=== PATIENT | female | born 1990 | race Caucasian/White ===

== ENCOUNTER 2024-05-01 11:06 | Outpatient (AMB) | payer BC, SELFPAY ==
--- NOTE | 2024-05-01 11:16 | MHC.PC.OV ---
Vital Signs 05/01/24 11:18 Height 5 ft 4 in Weight 131 lb 8 oz BMI 22.6 BP 116/80 Blood Pressure Location Rt brachial Position Sitting Respiration 14 Pulse 91 Pulse Source Pulse Oximeter Temp 97.8 F Temp Source Temporal Artery Scan Pulse Oximetry (%) 99 Oxygen Delivery Method Room Air Intake Visit Reasons: SECURITY EXPERT requesting PE insurance needsUP Cigarette Paper Tester Required: No Accompanied by: Self / Same As Patient Allergies tramadol Adverse Reaction (Intermediate, Verified 05/01/24 11:33) Anaphylaxis codeine Adverse Reaction (Verified 05/01/24 11:33) Anaphylaxis Medication List - Last Reconciled 05/01/24 by Marysol Allen, CLOTHING EXAMINER-BC dextroamphetamine-amphetamine 10 mg 1 tab PO DAILY dextroamphetamine-amphetamine 30 mg ER 1 cap PO DAILY Tobacco use date assessed: 05/01/24 Dental Screening Dental Screen Date: 05/01/24 Did you have a dental visit in the last 12 months?: Yes Did you have a dental problem in the last 6 months where you did not have access to dental care?: No Was dental information given to patient?: Patient has dentist HPI HPI Comments History of Present Illness Details 34 y/o F PMDD, ZARIA, ADHD, pre-elampsia (2021), ureteral stricture causing right pyelonephritis, renal calculi Social: , has 1 Dtr - GG (2021). Works for [employer] Health Maintenance: Pap Tdap 2021 Specialists: Psych Counseling FWS FACULTY ASSISTANT Here today as a new patient [facility], no medical records. Coming from [facility]. Being ff'd by FWS FACULTY ASSISTANT for this. Recommended Lexapro 2 weeks before her period. However felt tired, took it in the AM. Took at HS and this caused insomnia. Stopped due to side effects. Discussed going back on OCP however really does not want to do that. Has tried natural supplements. She also endorses generalized anxiety. Symptoms are present most days of the week. Physical symptoms include tachycardia and feeling mildly short of breath. She has active with a counselor. She endorses concerns about her skin and would like skin surveillance. Needs a referral for this. She suffered a tear during vaginal delivery with her 1st and only child. She was undergoing pelvic floor therapy in the past however this provider has left. She is interested in resuming care as she felt that this was beneficial. ADHD is managed by an outside prescriber with Adderall. She states that she has a history of ureteral stricture causing right pyelonephritis in the past. She was followed by Urology out in [place] however has fell out of care. She admits that she overall has no sensation to void and has to remind herself to urinate. She does not have any current complaints of abdominal pain, back pain, nausea, vomiting or back pain. Does also report a history of renal calculi. Finally she endorses a strong family history of sudden cardiac on the paternal side of her family. Reports that several family members age 50 and younger have of sudden cardiac disease. Have suffered cardiac events younger than the age of 60. She has never been referred to a manager spring. [facility] Medical History (Updated 05/02/24 @ 08:29 by Marysol Allen, [facility]) Ureteral stricture PMDD (premenstrual dysphoric disorder) Anxiety ADHD Surgical History (Updated 05/01/24 @ 11:27 by JERMAIN Rodney) History of mandibular surgery S/P ureteral stent placement H/O foot surgery Family History Other Alzheimer disease Diabetes Heart failure Mental health disorder Substance abuse Social History Housing: House Patient Tobacco Use Status: Never used Tobacco e-Cigarette/Vaping Use: Never Used service: No Current occupational status: employed Current occupation: [employer] Professional Cognitive needs: No Hearing needs: No Vision needs: Yes Questionnaire PHQ-9 Over the last 2 weeks, how often have you been bothered by any of the following problems? 1. Little interest or pleasure in doing things: several days 2. Feeling down, depressed, or hopeless: several days 3. Trouble falling or staying asleep, or sleeping too much: more than half the days 4. Feeling tired or having little energy: several days 5. Poor appetite or overeating: several days 6. Feeling bad about yourself - or that you are a failure or have let yourself or your family down: several days 7. Trouble concentrating on things, such as reading the newspaper or watching television: several days 8. Moving or speaking so slowly that other people could have noticed. Or the opposite - being so fidgety or restless that you have been moving around a lot more than usual: not at all 9. Thoughts that you would be better off or of hurting yourself in some way: several days Total score: 9 Depression Screening Interpretation: Positive Depression Screening Follow-up: Existing condition and In treatment Depression Screening Done: Yes 19768 - PHQ-9 Billing: Yes Source: Developed by Drs. Glenn Putnam, Tita Samano, Jack Rao and colleagues, with an educational quang from [employer]. Thrive Questionnaire Date Thrive assessed: 05/01/24 I am a: Patient What is your living situation today?: I have a steady place to live Within the past 12 months, did the food you bought not last and you didn't have the money to get more?: Never true Within the past 12 months, did you worry whether your food would run out before you got money to buy more?: Never true Do you have trouble paying for medicines?: No Do you have trouble getting transportation to medical appointments?: No Do you have trouble paying your heating and electricity bill?: No Do you have trouble taking care of your child, family member or friend?: No Do you have trouble with day-to-day activities such as bathing, preparing meals, shopping, managing finances, etc.?: No Are you currently unemployed and looking for a job?: No Are you interested in more education?: No Please select the resources that you would like help with: None Currently or been in a relationship where the following occur: no concerns reported THRIVE Score: 0 AUDIT C Alcohol Use Questionnaire (AUDIT-C) 1. How often do you have a drink containing alcohol?: 2-3 times a week 2. How many drinks containing alcohol do you have on a typical day when you are drinking?: 1 or 2 3. How often do you have six or more drinks on one occasion?: Never Total Score: 3 Score Reviewed/Action Taken: Yes ZARIA-7 AMB Questionnaire ZARIA-7 Date ZARIA - 7 assessed: 05/01/24 Feeling nervous, anxious, or on edge: 2 = More than half the days Not being able to stop or control worryin = Several days Worrying too much about different things: 1 = Several days Trouble relaxin = More than half the days Being so restless that it is hard to sit still: 3 = Nearly every day Becoming easily annoyed or irritable: 2 = More than half the days Feeling afraid as if something awful might happen: 1 = Several days Total ZARIA-7 score (0-4 normal; 5-9 mild; 10-14 moderate; 15-21 severe): 12 Source: Developed by Drs. Glenn Putnam, Tita Samano, Jack Rao and colleagues, with an educational quang from [employer]. ZARIA-7 Assessment Billing ZARIA-7 Assessment Tool: ZARIA-7 Assessment 41601 Review of Systems Const All systems reviewed & are unremarkable except as noted in HPI and below Physical exam (Primary Care) Vital Signs: Last Vital Signs Temp 97.8 F 05/01/24 11:18 Pulse 91 05/01/24 11:18 Resp 14 05/01/24 11:18 BP 116/80 05/01/24 11:18 Pulse Ox 99 05/01/24 11:18 Oxygen Delivery Method Room Air 05/01/24 11:18 BMI result Body Mass Index 22.6 Tobacco/Smoking Status: Tobacco use Status Tobacco use date assessed 05/01/24 05/01/24 11:32 Patient Tobacco Use Status Never used Tobacco 05/01/24 11:32 e-Cigarette/Vaping Use Never Used 05/01/24 11:32 PHQ-9: PHQ-9 Score PHQ-9: Total score 9 05/01/24 11:48 Depression Screening Interpretation: Positive Depression Screening Follow-up: Existing condition and In treatment Thrive Assessment: Date of Thrive Assessment Date Thrive assessed 05/01/24 05/01/24 11:32 Currently or been in a relationship where the following occur: no concerns reported Const Other: Awake alert oriented, pleasant and cooperative Mucous membranes moist Mildly tachycardic, regular rhythm Lung sounds clear to auscultation bilat No CVAT bilat Mood and affect appropriate Assessment and Plan Assessment & Plan (1) Pyelonephritis of right kidney: Comment: Due to ureteral stricture. Was followed by Urology and was started however has fallen out of care. We will refer to local urology for surveillance. Code(s): N12 - Tubulo-interstitial nephritis, not specified as acute or chronic (2) Family history of sudden cardiac : Comment: Refer to cardiology for screening given family history on paternal side. Code(s): Z82.41 - Family history of sudden cardiac (3) ZARIA (generalized anxiety disorder): Comment: see PMDD care plan Code(s): F41.1 - Generalized anxiety disorder (4) ADHD: Comment: Managed by outside prescriber and counselor with the use of extended release Adderall as well as immediate release Adderall with positive effect. Code(s): F90.9 - Attention-deficit hyperactivity disorder, unspecified type Qualifiers: Attention deficit-hyperactivity disorder type: predominantly inattentive Qualified Code(s): F90.0 - Attention-deficit hyperactivity disorder, predominantly inattentive type (5) PMDD (premenstrual dysphoric disorder): Comment: Tried Lexapro in the past however had side effects. The plan today will be to start her on Celexa 20 mg to be taken for 2 weeks per month prior to the onset of her symptoms. She does endorse generalized anxiety disorder that also is present. Symptoms are present most days. While she has not opposed to take something every single day she would rather trial taking it for 2 weeks to see how this helps versus starting it daily. She may benefit from taking this daily to help control her overall anxiety symptoms along with her PMDD symptoms. We will re-evaluate this at the next office visit which will be in about 2 months or sooner as needed. Code(s): F32.81 - Premenstrual dysphoric disorder (6) Screening for skin cancer: Comment: Refer to [facility]. Patient is aware that she needs to call and schedule this appointment herself. Code(s): Z12.83 - Encounter for screening for malignant neoplasm of skin (7) Ureteral stricture: Comment: Refer urology Code(s): N13.5 - Crossing vessel and stricture of ureter without hydronephrosis (8) Laboratory exam ordered as part of routine general medical examination: Code(s): Z00.00 - Encounter for general adult medical examination without abnormal findings (9) Pelvic floor dysfunction in female: Comment: referred to 7 sisters for eval and tx Code(s): M62.89 - Other specified disorders of muscle Plan: This note is constructed using voice recognition software. While every effort has been made to ensure accuracy in manager mining, still errors may have been included Sometimes, these errors may affect the content or meaning of the given sentence . Total time spent caring for the patient today was 46 minutes. This includes time spent before the visit reviewing the chart, time spent during the visit, and time spent after the visit on documentation Orders: Orders Microalbumin, Random (w Creat) 05/01/24 Z00.00 - Encounter for general adult medical examination without abnormal findings LDL Cholesterol Direct 05/01/24 Z00.00 - Encounter for general adult medical examination without abnormal findings IRON PROFILE 05/01/24 Z00.00 - Encounter for general adult medical examination without abnormal findings Hemoglobin A1c 05/01/24 Z00.00 - Encounter for general adult medical examination without abnormal findings TSH reflex Free T4 05/01/24 Z00.00 - Encounter for general adult medical examination without abnormal findings Vitamin D 1,25 dihydroxy 05/01/24 Z00.00 - Encounter for general adult medical examination without abnormal findings Comprehensive Met. Panel 05/01/24 Z00.00 - Encounter for general adult medical examination without abnormal findings Vitamin B12 and Folate 05/01/24 Z00.00 - Encounter for general adult medical examination without abnormal findings Complete Blood Count no Diff 05/01/24 Z00.00 - Encounter for general adult medical examination without abnormal findings Referrals Dermatology Referral Z12.83 - Encounter for screening for malignant neoplasm of skin Urology Referral N12 - Tubulo-interstitial nephritis, not specified as acute or chronic Cardiology Referral Z82.41 - Family history of sudden cardiac Medications: New citalopram 20 mg PO DAILY 30 tabs 1RF Patient Instructions: Check screening labs Use celexa for PMDD Keep journal of daily anxiety sx, consider taking QD to help overall Sx Refer to cards for fmhx of early cardiac Refer to Derm for skin survey Refer to Uro for ureteral stricture and R Pyelo RTO in 2 months to FU on PMDD, ZARIA and labs. Sooner as needed. [facility] in [facility] --> call them for appt. [facility] [address] [id number] *Call to see about Pelvic Floor program Walk-In Care (Urgent Care): We Make it Easy Walk-in for urgent medical issues such as: ? Seasonal Allergies ? Insect Bites ? Cough ? Diarrhea ? Acute Asthma Attacks ? Back, Knee or Joint Pain ? Ear Infection ? Fever without a Rash ? Headaches ? Nausea ? [place] Eye, Rash or Skin Irritation ? Sore Throat ? Sports Physicals ? Vomiting Most insurances are accepted. Patients do not need to be part of the [facility] to seek care at the walk-in clinic. Locations [address] [facility] [place] [address] ? [phone] [facility] Walk-In Care in [place] provides services to ages 18 and over. Open Sunday-Sunday: 8 a.m. to 5 p.m. and Sunday: 9 a.m. to 3 p.m.* *Hours may vary due to staffing availability. To confirm Walk-In Care hours in [place], please call [phone]. [address] [place] [address] ? [phone] [facility] Walk-In Care in [place] provides services to ages 12 and over. Open Sunday-Sunday: 8 a.m. to 5 p.m. Hours may vary due to staffing availability. To confirm Walk-In Care hours in [place], please call [phone]. LABORATORY SERVICES: [facility] ? Primary Location [address] [place] [address] Sunday through Sunday 6:00 AM ? 5:00 PM Sunday 7:00 AM ? 11:00 AM* [phone] The [facility] is centrally located near the front entrance of the [facility] for easy outpatient access. Convenient parking is provided for outpatients. *Hours may vary due to staffing availability. To confirm Laboratory hours for any location, please call [phone]. Offsite Location For your convenience, we offer offsite laboratory draw stations at the following locations: [address] [place] [address] ? [facility] [address], [address] Sunday through Sunday 7:30 AM ? 1:00 PM* [phone] *Hours may vary due to staffing availability. To confirm Laboratory hours for any location, please call [phone]. [place] ? [address] Sunday through Sunday 6:00 AM ? 3:30 PM* Sunday 6:30 AM ? 3 PM* [phone] *Hours may vary due to staffing availability. To confirm Laboratory hours for any location, please call [phone]. [address] [facility] Sunday through Sunday 7:30 AM ? 4:00 PM* [phone] *Hours may vary due to staffing availability. To confirm Laboratory hours for any location, please call [phone] [place] [address] Sunday through 9:00 AM ? 4:00 PM* *Hours may vary due to staffing availability. To confirm Laboratory hours for any location, please call [phone]. Appointments are not necessary. Walk-ins are welcome. Like all the departments throughout the [facility], our Lab undergoes frequent reviews to ensure the quality and accuracy of test results, and our staff takes special pride in its status as a nationally accredited facility. Patient Portal: ONE PATIENT. ONE RECORD. BETTER CARE. [facility] has a fully integrated, cutting-edge mobile electronic health information system that has revolutionized the way we care for our patients and manage our organization. This system improves communication and coordination enabling us to provide safe, higher-quality care, and an overall positive experience for staff and patients. Our first priority, as always, is to deliver the highest quality care possible. The system is running in the background supporting that priority. This portal is for all [facility] services and practices. If you are experiencing any technical difficulties with enrolling or logging into the Patient Portal please complete the [facility] Patient Portal Technical Support Form. [facility] now offers a new secure on-line interactive tool for patients to review their health information ? ?Patient Portal. This interactive web portal will enable patients and their families to take an active role in their care by providing easy, secure access to their health information via the internet. The Patient Portal provides patients with instant access to their health information, including laboratory results, medications, allergies, demographic information, visit history, and more. In addition to managing their own care, parents and health care proxies with authorized consent will appreciate the ability to access the records of those individuals for whom they provide care. Please note: if you wish to gain access (Proxy) to another patient?s portal, you will be required to come to the Medical Records Department in person at [facility]. Both the patient giving proxy access and the proxy will need to provide photo identification and complete the appropriate authorization. The Patient Portal also allows track their appointments online. The [facility] Patient Portal also saves patients time by allowing them to submit updates to their demographic and contact information prior to their visits. Portal email notifications will also alert patients to any new activity on their portal, such as test results and new appointments. In order to initially enroll in the [facility] Patient Portal, you will need to enter some required information including the following: your [facility] Medical Record number your personal home email address name date of Please note: In order to enroll in the [facility] Patient Portal, we need to have your email address on file in your electronic medical record. ?The email address needs to be specific for one person (yourself) in order for your Portal enrollment to be successful. ?You can update your email address in person with our Registration staff when you are registering for a hospital visit. ?Otherwise, you will need to come to the Health Information Management (Medical Records) Department at [facility]. ?We are open from Sunday ? Sunday from 7:30 a.m. ? 4:30 p.m. ?You will be required to present a photo id. Once you have successfully enrolled in the Patient Portal, you will receive a one-time user id and password for the Portal, sent to your email address. ?This will allow you to log into the Patient Portal within 99 hrs and reset your own logon id and password, and define personal security questions. ?Once your permanent login and password have been set, you can log into the [facility] Patient Portal at any time via the blue button above or from the Portal Logon button on any page of the [facility] website. [facility] encourage all of our patients to enroll in Patient Portal as it presents a valuable opportunity for patients and their families to actively participate in their care and stay healthy Welcome to [facility]. ?We look forward to working with you. Coding Level of Care Code New Pt Level 4 (85043) Diagnoses Pyelonephritis of right kidney N12 Family history of sudden cardiac Z82.41 ZARIA (generalized anxiety disorder) F41.1 Attention deficit hyperactivity disorder (ADHD), predominantly inattentive type F90.0 Attention deficit-hyperactivity disorder type: predominantly inattentive PMDD (premenstrual dysphoric disorder) F32.81 Screening for skin cancer Z12.83 Ureteral stricture N13.5 Laboratory exam ordered as part of routine general medical examination Z00.00 Pelvic floor dysfunction in female M62.89 Additional Codes ZARIA-7 Assessment Billing - ZARIA-7 Assessment Tool: ZARIA-7 Assessment 23970 ([id number])
[2024-05-01 11:18] VITALS: BP 116/80; PULSE 91; RESP 14; TEMP 36.6; O2SAT 99; BMI 22.6
== END 2024-05-01 12:04 | disposition home or self-care (01) ==
PROVIDERS: PCP Nurse Practitioner Family; Visit Provider Nurse Practitioner Family
DX: N12 Tubulo-interstitial nephritis, not specified as acute or chronic (principal); Z82.41 Family history of sudden cardiac death; F41.1 Generalized anxiety disorder; F90.0 Attention-deficit hyperactivity disorder, predominantly inattentive type; F32.81 Premenstrual dysphoric disorder; Z12.83 Encounter for screening for malignant neoplasm of skin; N13.5 Crossing vessel and stricture of ureter without hydronephrosis; M62.89 Other specified disorders of muscle
CPT/HCPCS: 99204

== ENCOUNTER 2024-05-01 12:15 | Outpatient (REF) | payer BC, SELFPAY ==
[2024-05-01 14:49] LABS: Estimated Average Glucose 91 mg/dL; Hemoglobin A1c % 4.8 % (<6.0)
[2024-05-01 14:55] LABS: Hematocrit 42.3 % (37.0-47.0); Hemoglobin 14.7 g/dl (12.0-16.0); Mean Corpuscular HGB Conc 34.8 g/dl (31.0-35.0); Mean Corpuscular Hemoglobin 29.9 pg (27.0-33.0); Mean Corpuscular Volume 86.2 fL (80.0-98.0); Mean Platelet Volume 9.9 fL (9.4-12.3); Platelet Count 333 X10*3/uL (160-400); Red Blood Count 4.91 X10*6/uL (4.20-5.50); Red Cell Distribution Width 12.9 % (11.0-16.0); White Blood Count 8.4 X10*3/uL (4.8-10.8)
[2024-05-01 15:06] LABS: Alanine Aminotransferase 13 U/L (0-31); Albumin Level 4.7 g/dL (3.5-5.0); Alkaline Phosphatase 48 U/L (39-117); Anion Gap 8 (12-20); Aspartate Amino Transferase 16 U/L (5-31); Bilirubin Total 0.8 mg/dL (0.0-1.0); Blood Urea Nitrogen 12 mg/dL (9-16); Calcium 9.7 mg/dL (8.4-10.2); Carbon Dioxide 27 mmol/L (22-29); Chloride 107 mmol/L (96-108); Estimated Glomerular Filt Rate > 60; Glucose Random 87 mg/dL (60-115); Iron 89 mcg/dL (30-160); Percent Iron Saturation 25 % (15-50); Potassium 3.3 mmol/L (3.3-5.1); Sodium 139 mmol/L (135-145); Total Iron Binding Capacity 358 mcg/dL (228-428); Total Protein 7.2 g/dL (6.5-8.0); Unsaturated Iron Binding 269 ug/dL
[2024-05-01 15:14] LABS: TSH reflex Free T4 1.48 uIU/mL (0.32-4.0)
[2024-05-01 15:25] LABS: Creatinine Urine 32.18 mg/dL; Microalbum/Creatinine Ratio Ur 34.1 ug/mg cr (<30)
[2024-05-01 15:27] LABS: Folate 13.9 ng/mL (> or = 4.0); Vitamin B12 541 pg/mL (200-900)
[2024-05-02 12:13] LABS: LDL Cholesterol Direct 77 mg/dL (<100)
[2024-05-06 00:04] LABS: VITAMIN D (1,25 OH) D3 60 pg/mL; Vit D (1,25-Dihydroxy) Total 60 pg/mL (18-72); Vitamin D (1,25 OH) D2 <8 pg/mL
== END 2024-05-01 12:16 | disposition home or self-care (01) ==
LOC: HO.WFDLDS 12:15
PROVIDERS: Visit Provider Nurse Practitioner Family
DX: Z00.00 Encounter for general adult medical examination without abnormal findings (principal); Z13.1 Encounter for screening for diabetes mellitus; Z13.29 Encounter for screening for other suspected endocrine disorder; Z13.89 Encounter for screening for other disorder
CPT/HCPCS: 36415; 80053; 82043; 82570; 82607; 82652; 82746; 83036; 83540; 83721; 84443; 85027

== ENCOUNTER 2025-07-08 11:31 | Outpatient (AMB) | payer OTHER, SELFPAY ==
--- NOTE | 2025-07-08 11:39 | A.OFFPC_ITS ---
Vital Signs 3 07/08/25 11:45 07/08/25 12:17 07/08/25 12:20 Height 5 ft 4 in Weight 129 lb 8 oz BMI 22.2 BP 142/80 H 124/94 H 126/90 H Blood Pressure Location Lt brachial Lt brachial Rt brachial Position Sitting Sitting Sitting Respiration 12 Pulse 63 Pulse Source Pulse Oximeter Temp 96.9 F Temp Source Oral Pulse Oximetry (%) 99 Oxygen Delivery Method Room Air Intake Visit Reasons: [facility] UTI, kidney pain/infection, and blood pre Intake Note: [facility] discharge follow up Printing Table Worker Required: No Allergies hydromorphone (From Dilaudid) Allergy (Severe, Verified 07/08/25 11:51) Vomiting tramadol Adverse Reaction (Intermediate, Verified 07/08/25 11:51) Anaphylaxis codeine Adverse Reaction (Verified 07/08/25 11:51) Anaphylaxis Medication List - Last Reconciled 07/08/25 by Marysol Allen, MANAGER MECHANICAL MAINTENANCE-BC dextroamphetamine-amphetamine 10 mg 1 tab PO DAILY dextroamphetamine-amphetamine 30 mg ER 1 cap PO DAILY Tobacco use date assessed: 07/08/25 Dental Screening Dental Screen Date: 05/01/24 Did you have a dental visit in the last 12 months?: Yes Did you have a dental problem in the last 6 months where you did not have access to dental care?: No Was dental information given to patient?: Patient has dentist HPI HPI Comments 2 History of Present Illness0 Details 35 y/o F PMDD, ZARIA, ADHD, pre-elampsia ( 2021), ureteral stricture causing right pyelonephritis, renal calculi, family hx of early cardiac , fhx brain tumor in mother Social: , has 1 Dtr - GG (2021). Works for [employer] Health Maintenance: Pap Tdap 2021 Specialists: Psych Counseling CHIEF MEDICAL TECHNOLOGIST Here today for a Transitional Care Management Visit Discharge summary reviewed. Admission Date: 06/14/2025 Discharge Date: 06/17/2025 Hospital: [facility] Date of interactive contact with Nurse Navigator: as documented in chart Pending diagnostic tests/treatments: See above Pending consults: No DME: NO PT/OT/BROKE MAN: NO Home Health Aide/FOAM DISPENSER: NO Referrals: Renal - Dr Srinivasan Medications reconciled & updated. During todays TCM visit, the d/c summary was reviewed, along with the need for or follow-up on pending diagnostic tests and treatments, as necessary interaction with other health childcare center administrator who will assume or reassume care of the beneficiary?s system-specific problems was done or is being worked on, education was provided to the beneficiary, family, guardian, and/or caregiver, referrals to establish or re-establish and arrange needed community resources we completed, assistance in scheduling required follow-up with community providers and services & finally updated medication list given to patient/caregiver History of Present Illness - The patient is a 35-year-old female pr esenting for a hospital discharge follow-up for pyelonephritis. - Hypertension and tachycardia noted dur ing admission. - Stopped takin BP meds 1 week ago. Repo rts monitoring at home, and normal. - Headache today otherwise no sx of HTN. - [place] the BP meds made her gasp for ai r - Stopped OCP. Saw CHIEF MEDICAL TECHNOLOGIST who is treating h er for another post-coital UTI - macrobid. was given prophylactic meds, too. - Needs referral to Dr Srinivasan and US ord ered - Reviewed hx of sudden cardiac ; r eferred to cards last year; couldnt go. New insurance. Interested in Echo and referral - Discharged with losartan, amlodipine; prescribed antibiotics for recurrent UTIs. Review of Systems - Cardiovascular: Reports no current gosia st pain; history of tachycardia. - Genitourinary: Reports recurrent UTIs; notes improvement post-antibiotics; denies current dysuria. - Neurological: Denies recent episodes o f dizziness or syncope; reports occurrence of headaches. - Gastrointestinal: Denies current sympt oms; history of flank pain associated with UTIs. - General: Denies fever, chills, nausea, vomiting. Physical Exam General: Well developed, well nourished, in no acute distress. Appears stated age. Head: Normocephalic, atraumatic. Eyes: Pupils are equal, round and reactive to light and accommodation. Conjunctivae are clear. Vision grossly normal. Lungs: Clear to auscultation bilaterally. No rales, rhonchi or wheeze noted. Good air flow in all cesar. Heart: Regular rate and rhythm. No murmurs, click, rubs or gallops are noted. Abdomen: Bowel sounds present in all quadrants. The abdomen is soft, nontender, with no masses or organomegaly noted. No hernias are noted. No CVAT bilat. Musculoskeletal: Joints are nontender, without swelling, redness, or effusions. Pulses: Peripheral pulses are equal and palpable bilaterally. Extremities: No clubbing, cyanosis nor edema is noted. Neuro: Nonfocal exam Psych: Mood and affect appropriate. Discussion Notes I emphasized the importance of medication adherence and consistent blood pressure monitoring. We also addressed her history of recurrent UTIs and current use of preventative antibiotics post-intercourse. I reiterated the need for a renal artery duplex ultrasound to assess renal artery stenosis due to ongoing renal concerns and reiterated my intention to expedite this process in coordination with her insurance and nephrology team. Further, I confirmed her nephrology consultation and addressed her concerns regarding cardiac health, offering referral for an echocardiogram given her family history & referral to [facility] cards. We planned a follow-up in July to coincide with her scheduled appointments for a comprehensive review of diagnostic outcomes and reinforced anticipatory guidance on when to seek immediate care. Patient was given time to ask questions. All questions were answered to their satisfaction. Assessment and Plan 1. Pyelonephritis - Schedule renal ultrasound. - Follow up in nephrology. 2. Essential Hypertension - Resume losartan and amlodipine. - Log daily blood pressure readings. - Echo 3. Recurrent Urinary Tract Infections - Use prophylactic postcoital antibiotic s. - Ensure adequate hydration. 4. Hypokalemia - Order CMP for potassium to be done tod ay Patient Instructions - Restart your losartan and amlodipine m edications. - Take your blood pressure once a day an d write it down. - Use your antibiotics as directed after having sex to prevent UTIs. - Drink plenty of water every day to sta y hydrated. - Schedule follow-up appointments with n ephrology and cardiology. - Come back to see me if you feel unwell or need more help. - RTO Jul/Aug for CPE Consent Patient was informed and verbally consented to the use of an ambient scribe for clinic note documentation during this visit. Total time spent caring for the patient today was 45 minutes. This includes time spent before the visit reviewing the chart, time spent during the visit, and time spent after the visit on documentation, reviewing laboratory results, diagnostic imaging, medications, performing a medically necessary evaluation, counseling on diagnoses, care coordination, ordering appropriate tests, ordering appropriate medications, review of tests performed by other providers, reporting test results with the patient, communication with other healthcare providers. [facility] Medical History (Updated 07/08/25 @ 12:24 by Marysol Allen [facility]) ADHD Anxiety Chronic jaw pain History of kidney stones Hives PMDD (premenstrual dysphoric disorder) Ureteral disorder Ureteral stricture Surgical History (Updated 05/01/24 @ 11:27 by JERMAIN Rodney) H/O foot surgery History of mandibular surgery S/P ureteral stent placement Family History Other Alzheimer disease Diabetes Heart failure Mental health disorder Substance abuse Social History Housing: House Patient Tobacco Use Status: Never used Tobacco e-Cigarette/Vaping Use: Never Used service: No Current occupational status: employed Current occupation: [employer] Cognitive needs: No Hearing needs: No Vision needs: Yes Questionnaire PHQ-9 Over the last 2 weeks, how often have you been bothered by any of the following problems? 1. Little interest or pleasure in doing things: not at all 2. Feeling down, depressed, or hopeless: not at all 3. Trouble falling or staying asleep, or sleeping too much: not at all 4. Feeling tired or having little energy: not at all 5. Poor appetite or overeating: not at all 6. Feeling bad about yourself - or that you are a failure or have let yourself or your family down: not at all 7. Trouble concentrating on things, such as reading the newspaper or watching television: not at all 8. Moving or speaking so slowly that other people could have noticed. Or the opposite - being so fidgety or restless that you have been moving around a lot more than usual: not at all 9. Thoughts that you would be better off or of hurting yourself in some way: not at all Total score: 0 Depression Screening Interpretation: Negative Depression Screening Done: Yes 59119 - PHQ-9 Billing: Yes Source: Developed by Drs. Glenn Putnam, Tita Samano, Jack Rao and colleagues, with an educational quang from [employer]. Thrive Questionnaire Date Thrive assessed: 07/08/25 I am a: Patient What is your living situation today?: I have a steady place to live Within the past 12 months, did the food you bought not last and you didn't have the money to get more?: Never true Within the past 12 months, did you worry whether your food would run out before you got money to buy more?: Never true Do you have trouble paying for medicines?: No Do you have trouble getting transportation to medical appointments?: No Do you have trouble paying your heating and electricity bill?: No Do you have trouble taking care of your child, family member or friend?: No Do you have trouble with day-to-day activities such as bathing, preparing meals, shopping, managing finances, etc.?: No Are you currently unemployed and looking for a job?: No Are you interested in more education?: No Please select the resources that you would like help with: None Currently or been in a relationship where the following occur: No concerns reported THRIVE Score: 0 AUDIT C Alcohol Use Questionnaire (AUDIT-C) 1. How often do you have a drink containing alcohol?: 2-3 times a week 2. How many drinks containing alcohol do you have on a typical day when you are drinking?: 1 or 2 3. How often do you have six or more drinks on one occasion?: Never Total Score: 3 Score Reviewed/Action Taken: Yes ZARIA-7 AMB Questionnaire ZARIA-7 Date ZARIA - 7 assessed: 07/08/25 Feeling nervous, anxious, or on edge: 0 = Not at all Not being able to stop or control worryin = Not at all Worrying too much about different things: 0 = Not at all Trouble relaxin = Not at all Being so restless that it is hard to sit still: 0 = Not at all Becoming easily annoyed or irritable: 0 = Not at all Feeling afraid as if something awful might happen: 0 = Not at all Total ZARIA-7 score (0-4 normal; 5-9 mild; 10-14 moderate; 15-21 severe): 0 Source: Developed by Drs. Glenn Putnam, Tita Samano, Jack Rao and colleagues, with an educational quang from [employer]. ZARIA-7 Assessment Billing ZARIA-7 Assessment Tool: ZARIA-7 Assessment 07221 Physical exam (Primary Care) Vital Signs: Last Vital Signs Temp 96.9 F 07/08/25 11:45 Pulse 63 07/08/25 11:45 Resp 12 07/08/25 11:45 BP 142/80 H 07/08/25 11:45 Pulse Ox 99 07/08/25 11:45 Oxygen Delivery Method Room Air 07/08/25 11:45 BMI result Body Mass Index 22.2 Tobacco/Smoking Status: Tobacco use Status Tobacco use date assessed 07/08/25 07/08/25 11:47 Patient Tobacco Use Status Never used Tobacco 07/08/25 11:47 e-Cigarette/Vaping Use Never Used 07/08/25 11:47 PHQ-9: PHQ-9 Score PHQ-9: Total score 0 07/08/25 11:47 Depression Screening Interpretation: Negative Thrive Assessment: Date of Thrive Assessment Date Thrive assessed 07/08/25 07/08/25 11:47 Currently or been in a relationship where the following occur: No concerns reported Coding Level of Care Code Est Pt Level 5 (98138) Complex EM visit Add On G2211 Diagnoses Hospital discharge follow-up Z09 Pyelonephritis of right kidney N12 Ureteral stricture N13.5 Primary hypertension I10 Hypertension type: primary hypertension Family history of sudden cardiac Z82.41 Recurrent UTI N39.0 Additional Codes ZARIA-7 Assessment Billing - ZARIA-7 Assessment Tool: ZARIA-7 Assessment 69764 ([id number]) PHQ-9 - 33676 - PHQ-9 Billing: Yes ([id number]) Assessment & Plan Assessment & Plan (1) Hospital discharge follow-up: Code(s): Z09 - Encounter for follow-up examination after completed treatment for conditions other than malignant neoplasm (2) Pyelonephritis of right kidney: Comment: Due to ureteral stricture. Was followed by Urology and was started however has fallen out of care. We will refer to local urology for surveillance. Code(s): N12 - Tubulo-interstitial nephritis, not specified as acute or chronic Category: Medical (3) Ureteral stricture: Comment: Refer urology Code(s): N13.5 - Crossing vessel and stricture of ureter without hydronephrosis Category: Medical (4) HTN (hypertension): Code(s): I10 - Essential (primary) hypertension Category: Medical Qualifiers: Hypertension type: primary hypertension Qualified Code(s): I10 - Essential (primary) hypertension (5) Family history of sudden cardiac : Comment: Refer to cardiology for screening given family history on paternal side. Code(s): Z82.41 - Family history of sudden cardiac Category: Medical (6) Recurrent UTI: Code(s): N39.0 - Urinary tract infection, site not specified Category: Medical Plan . Orders: Orders 2 Comprehensive Met. Panel Today N12 - Tubulo-interstitial nephritis, not specified as acute or chronic, Z09 - Encounter for follow-up examination after completed treatment for conditions other than malignant neoplasm US renal doppler Today I10 - Essential (primary) hypertension, N12 - Tubulo- interstitial nephritis, not specified as acute or chronic CA echo transthoracic complete Today I10 - Essential (primary) hypertension, Z82.41 - Family history of sudden cardiac Referrals 2 Nephrology Referral I10 - Essential (primary) hypertension, N12 - Tubulo- interstitial nephritis, not specified as acute or chronic, N13.5 - Crossing vessel and stricture of ureter without hydronephrosis, Z09 - Encounter for follow-up examination after completed treatment for conditions other than malignant neoplasm Cardiology Referral I10 - Essential (primary) hypertension, Z82.41 - Family history of sudden cardiac Medications: New 2 losartan 100 mg PO DAILY 90 tabs 0RF amlodipine (Norvasc) 5 mg PO DAILY 90 tabs 0RF
[2025-07-08 11:45] VITALS: BP 142/80; PULSE 63; RESP 12; TEMP 36.1; O2SAT 99; BMI 22.2
[2025-07-08 12:17] VITALS: BP 124/94
[2025-07-08 12:20] VITALS: BP 126/90
--- OUTSIDE RECORDS SUMMARY | 2025-07-08 12:50 | XMS_ITS | Clinical Summary ---
Author Organization [facility] Address [address] [place] [address] Care Team Providers Care Financial Analyst Accountant Name Role Phone Maureen Frias MD Primary Care Provider Allergies Active Allergy Reactions Criticality Noted Date Comments Codeine Swelling Medium 10/17/2017 Tramadol Swelling Medium 10/17/2017 Medications No known medications Immunizations Immunization Administration Dates Next Due Influenza Inactivated/Split Preservative Free IM 10/17/2017(Deferred: Patient Refused) Social History Tobacco Use Types Packs/Day Years Used Date Smoking Tobacco: Never Smokeless Tobacco: Never Comments Unknown Sex and Gender Information Value Date Recorded Sex Assigned at Not on file Legal Sex Female 12:43 PM EST Gender Identity Not on file Sexual Orientation Not on file Last Filed Vital Signs Vital Sign Reading Time Taken Comments Blood Pressure 137/92 10/17/2017 12:56 PM EST Pulse 84 10/17/2017 12:56 PM EST Temperature 36.5 C (97.7 F) 10/17/2017 12:56 PM EST Respiratory Rate - - Oxygen Saturation 99% 10/17/2017 12:56 PM EST Inhaled Oxygen Concentration - - Weight - - Height - - Body Mass Index - - Plan of Treatment Health Maintenance Due Date Last Done Comments Hepatitis C Virus Screening 1990 HIV Screening 2003 DTaP/Tdap/Td Vaccines (1 - Tdap) 2009 Hepatitis B Vaccines (1 of 3 - 19+ 3-dose series) 2009 Pap Smear (Ages 21-65) 2011 HPV Vaccines (1 - 3-dose SCD M series) 2017 COVID-19 Vaccine ( - 2023-2 5 season) 2024 Influenza Vaccine 06/19/2025 Pneumococcal Vaccine: Pediat tres (0-5 Years) and At-Risk Patients (6 to 49 Years) Aged Out No longer eligible b ased on patient's age to complete this topic Insurance [facility] Care Teams Financial Analyst Accountant Relationship Specialty Start Date End Date Maureen Frias MD [address] [place] [address] [phone] PCP - General 10/17/17
--- OUTSIDE RECORDS SUMMARY | 2025-07-08 12:50 | XMS_ITS ---
Author Name [facility] Organization Unknown Care Team Organization Name Specialty Phone Email Start Date End Da te [facility] 03/26/2023 024 [facility] Termed, PROVIDER Primary Care 09/26/202206/19
--- OUTSIDE RECORDS SUMMARY | 2025-07-08 12:50 | XMS_ITS | Clinical Summary ---
Author Organization [facility] Address [address] [address] Phone Care Team Providers Care Cycle Analyst Name Role Phone Schaffer, Marysolkailash FLOWERS Primary Care Provider Social History Tobacco Use Types Packs/Day Years Used Date Smoking Tobacco: Never Assessed Comments Unknown Sex and Gender Information Value Date Recorded Sex Assigned at Not on file Legal Sex Female 1:33 PM EDT Gender Identity Not on file Sexual Orientation Not on file Plan of Treatment Upcoming Encounters Date Type Department Care Team (Late st Contact Info) Description 08/12/2025 9:00 AM EDT Office Visit [facility] [address] [phone] Ethan Richards MD [address] [phone] Health Maintenance Due Date Last Done Comments Hepatitis B Vaccine (1 of 3 - 19+ 3-dose series) 04/12 Pneumococcal Vaccine: Peds ( 0 to 5 Years) and At-Risk Patients (6 to 49 Years) (1 of 2 - PCV) 2009 Influenza Vaccine (#1) 2025 Insurance [employer] Care Teams Cycle Analyst Relationship Specialty Start Date End Date Marysol Schaffer FNP [address] [place] [phone] PCP - General Nurse Practitioner 11/19/24
== END 2025-07-08 12:16 | disposition home or self-care (01) ==
LOC: HO.HMCFM 11:33
PROVIDERS: PCP Nurse Practitioner Family; Visit Provider Nurse Practitioner Family
DX: N12 Tubulo-interstitial nephritis, not specified as acute or chronic (principal); Z09 Encounter for follow-up examination after completed treatment for conditions other than malignant neoplasm; N13.5 Crossing vessel and stricture of ureter without hydronephrosis; I10 Essential (primary) hypertension; Z82.41 Family history of sudden cardiac death; N39.0 Urinary tract infection, site not specified

== ENCOUNTER → 2025-07-08 11:31 | Outpatient (BNVA) | payer OTHER, SELFPAY | PROVIDERS: PCP Nurse Practitioner Family; Visit Provider Nurse Practitioner Family | DX: I10 Essential (primary) hypertension (principal); N12 Tubulo-interstitial nephritis, not specified as acute or chronic; E87.6 Hypokalemia; N13.5 Crossing vessel and stricture of ureter without hydronephrosis; Z82.41 Family history of sudden cardiac death; Z87.440 Personal history of urinary (tract) infections | CPT/HCPCS: 96127 ==

== ENCOUNTER 2025-07-29 08:28 | Outpatient (REF) | payer OTHER, SELFPAY ==
--- NOTE | ~2025-07-29 | US_ITS ---
EXAMINATION: ULTRASOUND RENAL BILATERALLY. ULTRASOUND RENAL DOPPLER, BILATERALLY. CLINICAL INFORMATION: Urinary tract infection. N39.0. COMPARISON: No priors. TECHNIQUE: Real-time ultrasound kidneys using grayscale technique. Spectral Doppler analysis of the main renal arteries, abdominal aorta at the origin of the main renal arteries and resistive indicis in the segmental and interlobular renal arteries at the upper mid and lower pole. FINDINGS: Right kidney: 13 x 5 x 6. Normal echotexture. Normal renal cortical thickness. Mild prominent pelvicalyceal system. There is a 1.1 cm hyperechoic abnormality at the corticomedullary junction of the lower pole. Left kidney: 11 x 5 x 5 cm. Normal echotexture. Normal renal cortical thickness. No hydronephrosis. No gross solid or cystic lesion. SPECTRAL DOPPLER ANALYSIS: Abdominal aorta at the origin of the main renal arteries is patent with peak systolic velocity 102 cm/s. Right Kidney: -Peak systolic velocity in the proximal right renal artery = 173 cm/s. Normal waveforms. -Peak systolic velocity in the mid right renal artery = 166 cm/s. Normal waveforms. -Peak systolic velocity in the distal right renal artery = 177 cm/s. Normal waveforms. -Patent right renal vein. -Upper pole interlobar artery resistive index of 0.75. -Midpole interlobar artery resistive index of 0.70. -Lower pole interlobar artery resistive index of 0.61. RAR right = note calculated Left Kidney: -Peak systolic velocity in the proximal left renal artery = 74 cm/s. Normal waveforms. -Peak systolic velocity in the mid left renal artery = 191 cm/s. Normal waveforms. -Peak systolic velocity in the distal left renal artery = 196 cm/s. Normal waveforms. -Patent left renal vein. -Upper pole interlobar artery resistive index of 0.52. -Mid pole interlobar artery resistive index of 0.61. -lower pole interlobar artery resistive index of 0.60. RAR left = not calculated Aorta: -Peak systolic velocity = 102 cm/s. US/US renal BI IMPRESSION: Mild hydronephrosis, right kidney. 1.1 cm calculus, right kidney. No hydronephrosis left kidney. No hemodynamically significant stenosis by ultrasound criteria. Electronically signed by: Mc Fermin MD 07/29/2025 09:45 AM EDT RP
--- NOTE | ~2025-07-29 | US_ITS ---
EXAMINATION: ULTRASOUND RENAL BILATERALLY. ULTRASOUND RENAL DOPPLER, BILATERALLY. CLINICAL INFORMATION: Urinary tract infection. N39.0. COMPARISON: No priors. TECHNIQUE: Real-time ultrasound kidneys using grayscale technique. Spectral Doppler analysis of the main renal arteries, abdominal aorta at the origin of the main renal arteries and resistive indicis in the segmental and interlobular renal arteries at the upper mid and lower pole. FINDINGS: Right kidney: 13 x 5 x 6. Normal echotexture. Normal renal cortical thickness. Mild prominent pelvicalyceal system. There is a 1.1 cm hyperechoic abnormality at the corticomedullary junction of the lower pole. Left kidney: 11 x 5 x 5 cm. Normal echotexture. Normal renal cortical thickness. No hydronephrosis. No gross solid or cystic lesion. SPECTRAL DOPPLER ANALYSIS: Abdominal aorta at the origin of the main renal arteries is patent with peak systolic velocity 102 cm/s. Right Kidney: -Peak systolic velocity in the proximal right renal artery = 173 cm/s. Normal waveforms. -Peak systolic velocity in the mid right renal artery = 166 cm/s. Normal waveforms. -Peak systolic velocity in the distal right renal artery = 177 cm/s. Normal waveforms. -Patent right renal vein. -Upper pole interlobar artery resistive index of 0.75. -Midpole interlobar artery resistive index of 0.70. -Lower pole interlobar artery resistive index of 0.61. RAR right = note calculated Left Kidney: -Peak systolic velocity in the proximal left renal artery = 74 cm/s. Normal waveforms. -Peak systolic velocity in the mid left renal artery = 191 cm/s. Normal waveforms. -Peak systolic velocity in the distal left renal artery = 196 cm/s. Normal waveforms. -Patent left renal vein. -Upper pole interlobar artery resistive index of 0.52. -Mid pole interlobar artery resistive index of 0.61. -lower pole interlobar artery resistive index of 0.60. RAR left = not calculated Aorta: -Peak systolic velocity = 102 cm/s. US/US renal doppler IMPRESSION: Mild hydronephrosis, right kidney. 1.1 cm calculus, right kidney. No hydronephrosis left kidney. No hemodynamically significant stenosis by ultrasound criteria. Electronically signed by: Mc Fermin MD 07/29/2025 09:45 AM EDT
--- OUTSIDE RECORDS SUMMARY | 2025-07-29 09:45 | XMS_ITS | Clinical Summary ---
Author Organization [facility] Address [address] [place] [address] Care Team Providers Care Bridge Expert Name Role Phone Maureen Frias MD Primary [...] (1 - 3-dose SCD M series) 2017 Influenza Vaccine 06/19/2025 COVID-19 Vaccine ( - 2023-2 5 season) 2025 Pneumococcal Vaccine: Pediat tres (0-5 Years) and At-Risk Patients (6 to 49 Years) Aged Out No longer eligible b ased on patient's age to complete this topic Insurance [facility] Care Teams Bridge Expert Relationship Specialty Start Date End Date Maureen Frias MD [address] [place] [address] [phone] PCP - General 10/17/17
--- OUTSIDE RECORDS SUMMARY | 2025-07-29 09:45 | XMS_ITS | Clinical Summary ---
Author Organization [facility] Address [address] [address] Phone Care Team Providers Care Robotic Weld Technician Name Role Phone Schaffer, Marysolkailash FLOWERS Primary [...] Office Visit [facility] [address] [phone] Ethan Richards MD [address] [phone] Health Maintenance Due Date Last Done Comments Hepatitis B Vaccine (1 of 3 - 19+ 3-dose series) 04/12 Pneumococcal Vaccine: Peds ( 0 to 5 Years) and At-Risk Patients (6 to 49 Years) (1 of 2 - PCV) 2009 Influenza Vaccine (#1) 2025 Insurance [employer] Care Teams Robotic Weld Technician Relationship Specialty Start Date End Date Marysol Schaffer FNP [address] [place] [phone] PCP - General Nurse Practitioner 11/19/24
== END 2025-07-29 08:29 | disposition home or self-care (01) ==
LOC: HO.US 08:28
PROVIDERS: PCP Nurse Practitioner Family; Visit Provider Nurse Practitioner Family
DX: N12 Tubulo-interstitial nephritis, not specified as acute or chronic (principal); N39.0 Urinary tract infection, site not specified; I10 Essential (primary) hypertension
CPT/HCPCS: 76775; 93975

== ENCOUNTER → 2025-07-29 08:31 | Outpatient (BNV) | payer OTHER, SELFPAY | PROVIDERS: PCP Nurse Practitioner Family; Visit Provider Radiology Diagnostic Radiology | DX: N39.0 Urinary tract infection, site not specified (principal) | CPT/HCPCS: 76775; 93975 ==

== ENCOUNTER → 2025-08-19 14:07 | Outpatient (REF) | payer OTHER, SELFPAY ==
--- NOTE | 2025-08-19 14:10 | CA_ITS ---
Transthoracic Echocardiogram Patient (Last, First, Middle): Brenna Nino, Gender: Female Date of : 1990 Age: 35 Procedure Date: 08/19/2025 Procedure Type: Transthoracic Echocardiogram Location: OP Height: 162.56 cm Weight: 58.51 kg BSA: 1.62 m2 Heart Rate: bpm BP: 126 / 90 mmHg Security Infrastructure Engineer: MIKE Referring MD: Marysol Allen [employer]- Symptoms: I10 - Essential (primary) hypertension Study Quality: Adequate ECG Rhythm: Sinus Conclusions: - The left ventricular systolic function is normal. The calculated ejection fraction is 59% by biplane method. - No obvious valvular pathology seen on this study. Findings Left Ventricle Normal left ventricular cavity size. There is normal left ventricular wall thickness. The left ventricular systolic function is normal. The calculated ejection fraction is 59% by biplane method. There is no evidence of regional wall motion abnormalities. Diastolic function is normal for age. Right Ventricle Normal right ventricular cavity size and systolic function. Atria Both atria are normal in size. Aortic Valve There is a normal trileaflet aortic valve. There is no aortic valve stenosis. There is no aortic valve regurgitation. Mitral Valve The mitral valve appears normal. There is no mitral valve regurgitation. There is no mitral valve stenosis. Pulmonic Valve The pulmonic valve is likely normal. Tricuspid Valve There is trace tricuspid valve regurgitation. There is no evidence of pulmonary hypertension. Great Vessels The asc aorta and aortic arch are normal in size. Venous The inferior vena cava is dilated and collapses greater than 50% with inspiration. Pericardium/Pleural There is no evidence of pericardial effusion. Prior Study Comparison No prior study available for comparison. Recommendations, Care & Conclusions No obvious valvular pathology seen on this study. Measurements 2D Linear Measurements IVSd: 0.79 0.6-0.9/0.6-1.0 cm LVIDd: 4.38 3.9-5.3/4.2-5.9 cm LVIDd Index: 2.70 2.4-3.2/2.2-3.1 cm/m2 LVIDs: 2.57 2.0-3.6 cm LVPWd: 0.83 0.7-1.1 cm LA Diam: 2.70 2.7-3.8/3.0-4.0 cm LAIDs Index: 1.67 1.5-2.3 cm/m2 LV Mass: 137.81 67-162/88-224 g LV Mass Index: 85.07 43-95/49-115 g/m2 LVOT Diam: 2.00 3.0+(-)1.3 cm 2D Systolic Function EF 4C: 62.90 >55% EF 2C: 60.40 >55% EF BiP: 59.40 >55% Mitral Valve MV Pk E: 0.63 MV PK A: 0.59 MV Decel Time: 232.00 E/A: 1.10 E'Lateral: 10.30 E'Medial: 9.03 E/E' Med: 7.00 E/E' Lat: 6.20 PHT: 68.00 MVA PHT: 3.24 Decel Knott: 2.74 Aortic Valve AoV Pk Michael: 1.26 AoV Mn Michael: 0.95 AoV VTI: 0.26 AoV Pk Grad: 6.00 Aov Mn Grad: 4.00 SKYLAR Cont.VTI: 2.52 LVOT LVOT Pk Michael: 1.07 LVOT Mn Michael: 0.73 LVOT VTI: 0.21 LVOT Pk Grad: 5.00 LVOT Mn Grad: 2.00 LVOT Diam: 2.00 LVOT Area: 3.14 Diastolic Function MV Pk E: 0.63 MV Pk A: 0.59 E/A: 1.10 E'Medial: 9.03 E/E' Med: 7.00 E' Laterial: 10.30 E/E' Lat: 6.20 Right Ventricle TAPSE (mm): 20.00 TVS' Michael: 14.90 Tricuspid Valve TR Pk Michael: 1.87 TR Pk Grad: 14.00 RA Press: 8.00 RVSP: 22.00 Great Vessels Aorta Sinus of Valsalva: 2.87 2.0-3.[address] Ridge: 2.59 1.7-3.4 cm Ao Asc: 3.40 2.1-3.4 cm Ao Arch: 3.00 Updated in Other Vendor System with Status of Final Hubert Pack MD electronically signed on 08/21/2025 1:13:45 PM with status of Final
--- OUTSIDE RECORDS SUMMARY | 2025-08-19 15:19 | XMS_ITS | Clinical Summary ---
Author Organization [facility] Address [address] [place] [address] Care Team Providers Care Correspondence Specialist Name Role Phone Maureen Frias MD Primary [...] patient's age to complete this topic Insurance [facility] Care Teams Correspondence Specialist Relationship Specialty Start Date End Date Maureen Frias MD [address] [place] [address] [id number] PCP - General 10/17/17
== END ==
LOC: HO.CARD 14:07
PROVIDERS: PCP Nurse Practitioner Family; Visit Provider Nurse Practitioner Family
DX: I10 Essential (primary) hypertension (principal); Z82.41 Family history of sudden cardiac death
CPT/HCPCS: 93306

== ENCOUNTER → 2025-08-19 14:10 | Outpatient (BNV) | payer OTHER, SELFPAY | PROVIDERS: PCP Nurse Practitioner Family; Visit Provider Internal Medicine | DX: I10 Essential (primary) hypertension (principal) | CPT/HCPCS: 93306 ==